=== PATIENT | male | born 1950 | race Caucasian/White ===

== ENCOUNTER 2020-07-12 14:16 | Inpatient (IN) | payer OTHER, SELFPAY ==
[~2020-07-12] VITALS: Ht 167.6 cm; Wt 107.0 kg
[2020-07-12] MEDS: ENOXAPARIN 40 MG/0.4 ML SYR SUBQ SCH
[2020-07-12 14:17] VITALS: BP 138/84
--- NOTE | 2020-07-12 14:27 | NUR ---
KIEL SWAB SENT TO LAB
--- NOTE | 2020-07-12 14:30 | NUR ---
70 YEAR OLD FEMALE BIBA FROM HOME FOR NEAR SYNCOPE EPISODE. PER EMS PT DID NOT LOC, AND WAS ASSISTED TO GROUND BY FAMILY. PT AOX4, BREATHING EVEN AND UNLABORED, SKIN WARM AND DRY. BED IN LOWEST POSITION, LOCKED, BED RAIL UPX1. PT PLACED ON MONITOR, VS STABLE. PMH - HTN, GOUT ALLERGIES - NKA
--- NOTE | 2020-07-12 14:41 | NUR ---
research tech at bedside.
[2020-07-12 14:43] LABS: BASOPHILS % (AUTO) 0.2 % (0.0-2.0); HEMATOCRIT 40.4 % (36-52); HEMOGLOBIN 13.4 g/dL (12.0-18.0); LYMPHOCYTES # (AUTO) 0.9 K/uL (2.0-11.5); LYMPHOCYTES % (AUTO) 13.2 % (20.5-51.1); MEAN CORPUSCULAR HEMOGLOBIN 31 pg (27-31); MEAN CORPUSCULAR HGB CONC 33 g/dL (33-37); MEAN CORPUSCULAR VOLUME 92.8 fL (80-94); MONOCYTES # (AUTO) 0.6 K/uL (0.8-1.0); MONOCYTES % (AUTO) 9.3 % (1.7-9.3); NEUTROPHILS # (AUTO) 5.3 K/uL (1.8-7.7); NEUTROPHILS % (AUTO) 77.3 % (42.2-75.2); PLATELET COUNT (AUTO) 171 K/uL (140-450); RED BLOOD CELL COUNT(AUTO) 4.36 MIL/uL (4.20-6.10); RED CELL DISTRIBUTION WIDTH 12.8 % (11.6-13.7); WHITE BLOOD COUNT (AUTO) 6.9 K/uL (4.8-10.8)
--- NOTE | 2020-07-12 14:48 | NUR ---
Dr. Fernandez is evaluating the patient at bedside.
--- NOTE | 2020-07-12 14:50 | NUR ---
PT 91% ON RA, RR 14 - PLACED ON 2L NC
[2020-07-12 14:55] LABS: PROTHROMBIN TIME 10.2 secs (10.8-13.4)
[2020-07-12 14:57] LABS: ALBUMIN 2.9 g/dL (3.4-5.0); ASPARTATE AMINOTRANSFERASE 54 U/L (15-37); CARBON DIOXIDE 24.6 mmol/L (21-32); CHLORIDE 108 mmol/L (98-107); CREATININE 1.9 mg/dL (0.6-1.3); GLUCOSE 148 mg/dL (74-106); POTASSIUM 3.6 mmol/L (3.5-5.1); SODIUM SERUM 143 mmol/L (136-145); TOTAL BILIRUBIN 0.6 mg/dL (0.0-1.0); UREA NITROGEN, BLOOD 35 mg/dL (7-18)
--- NOTE | 2020-07-12 15:16 | NUR ---
WITH PT STANDING UP, SPO2 86% THEN PT HAS SOB AND HAD TO SIT DOWN. DR ACOSTA MADE AWARE, PLACED ON 4L NC.
[2020-07-12] MEDS ORDERED: METO100T14 PO (15:21)
[2020-07-12] MEDS ORDERED: ALLO100T21 PO (15:21)
[2020-07-12] MEDS ORDERED: NACL 0.9% 1,000 ML IV ONE (16:40)
[2020-07-12] MEDS ORDERED: TERA5CAP8 PO (16:46)
[2020-07-12] MEDS ORDERED: AZIT250T3 PO (16:46)
[2020-07-12] MEDS ORDERED: LOSA100T1 PO (16:46)
[2020-07-12] MEDS ORDERED: ONDANSETRON 4 MG/2 ML VIAL IVP PRN (17:50)
[2020-07-12] MEDS ORDERED: ACETAMINOPHEN 325 MG TAB PO PRN (17:50)
[2020-07-12] MEDS ORDERED: KCL 20 MEQ/WATER INJ PREMIX 200 ML IV PRN (17:50)
[2020-07-12] MEDS ORDERED: MAG SULF 2000 MG/WATER PREMIX 50 ML IV PRN (17:50)
[2020-07-12] MEDS ORDERED: remdesivir COMMUNICATION ORDER 1 EA MISC MC PRN (18:00)
--- NOTE | 2020-07-12 19:22 | NUR ---
REPORT GIVEN TO ELIZABETH JIANG, TRANSFER OF CARE AT THIS TIME
--- NOTE | 2020-07-12 22:18 | NUR ---
PRE-TRANSFER NOTES: 1-UNABLE TO ADMINISTER LOVENOX D/T COMPUTER NOT ACCEPTING CO-SIGNATURE FROM EFFICIENCY ENGINEER. 2-PT REPORT CALLED IN TO DEIDRE STEVE, AT [id number] AT [id number]. PT TO BE TRANSFERRED TO ROOM 110-B. CONDITION STABLE. 3-CONSENT FOR CONVALESCENT PLASMA GIVEN BY PT.
[2020-07-12 23:03] VITALS: BP 111/63
--- NOTE | 2020-07-12 23:03 | NUR ---
RECEIVED PT FROM ER / MARK / NID - O2 SAT WNL , ON O2 AT 4LPM/NC , AAOX4 , IV SITE INTACT AND PATENT . AMBULATES TO BED BY STANDY ASSIST . DENIES ANY PAIN . ADMISSION ASSESSMENT DONE - MRSA SPECIMEN SENT . P;YAQUELIN OF CARE DISCUSSED VERBALIZE UNDERSTANDING . SAFETY MEASURES IN PLACE - CALL LIGHT WITHIN REACH . WILL CONT. TO MONITOR .
--- NOTE | 2020-07-13 01:00 | NUR ---
VOIDED FREELY AMBULATES TO RESTROOM . NID 02 SAT WNL .
--- NOTE | 2020-07-13 02:00 | NUR ---
SLEEPING , CHEST RISE AND FALL EQUALLY .
[2020-07-13 04:00] VITALS: BP 131/83
--- NOTE | 2020-07-13 04:00 | NUR ---
MADE ROUNDS , NO S/SX OF ACUTE DISTRESS NOTED . CALL LIGHT WITHIN REACH .
--- NOTE | 2020-07-13 05:37 | NUR ---
O2 SAT WNL . NO S/SX OF ACUTE DISTREES . CALL LIGHT WITHIN REACH .
--- NOTE | 2020-07-13 07:30 | NUR ---
ENDORSED =- PT - STABLE . I ENDORSE TO AM NURSE THE PT'S WILL CALL THIS AM FOR SOME INFO REGARDINVG PT'S HOME MEDS .
--- NOTE | 2020-07-13 07:31 | NUR ---
RECEIVED ENDORSEMENT FROM BLOCKER AND SEWER, AWAKE,ALERT, ORIENTEDX4, BREATHING SPONTANEOUSLY WITH O2 AT 4L/MINVIA NC ,NON LABORED NOTED. WITH IV CANNULA G18 AT RT AC ON SALINE LOCK NOTED. SAFETY MEASURES IN PLACE AND CONTINUE MONITOR
[2020-07-13 07:33] LABS: BASOPHILS % (AUTO) 0.2 % (0.0-2.0); HEMATOCRIT 40.7 % (36-52); HEMOGLOBIN 13.6 g/dL (12.0-18.0); LYMPHOCYTES # (AUTO) 1.3 K/uL (2.0-11.5); LYMPHOCYTES % (AUTO) 20.2 % (20.5-51.1); MEAN CORPUSCULAR HEMOGLOBIN 31 pg (27-31); MEAN CORPUSCULAR HGB CONC 33 g/dL (33-37); MEAN CORPUSCULAR VOLUME 93.4 fL (80-94); MONOCYTES # (AUTO) 0.8 K/uL (0.8-1.0); MONOCYTES % (AUTO) 12.8 % (1.7-9.3); NEUTROPHILS # (AUTO) 4.3 K/uL (1.8-7.7); NEUTROPHILS % (AUTO) 66.8 % (42.2-75.2); PLATELET COUNT (AUTO) 177 K/uL (140-450); RED BLOOD CELL COUNT(AUTO) 4.35 MIL/uL (4.20-6.10); WHITE BLOOD COUNT (AUTO) 6.4 K/uL (4.8-10.8)
[2020-07-13 07:56] LABS: ALBUMIN 2.9 g/dL (3.4-5.0); ASPARTATE AMINOTRANSFERASE 59 U/L (15-37); CARBON DIOXIDE 26.2 mmol/L (21-32); CHLORIDE 113 mmol/L (98-107); CREATININE 1.6 mg/dL (0.6-1.3); GLUCOSE 111 mg/dL (74-106); POTASSIUM 4.2 mmol/L (3.5-5.1); SODIUM SERUM 150 mmol/L (136-145); TOTAL BILIRUBIN 0.5 mg/dL (0.0-1.0); UREA NITROGEN, BLOOD 37 mg/dL (7-18)
[2020-07-13 08:00] VITALS: BP 125/67
[2020-07-13] MEDS: METOPROLOL SUCCINATE 50 MG TABER PO SCH (08:58)
[2020-07-13] MEDS: ENOXAPARIN 40 MG/0.4 ML SYR SUBQ SCH ×2 (08:59→20:29)
[2020-07-13] MEDS: LOSARTAN 50 MG TAB PO SCH (09:01)
[2020-07-13] MEDS: allopurinoL 100 MG TAB PO SCH (09:01)
[2020-07-13] MEDS: DOCUSATE SODIUM 100 MG GELCAP PO SCH (09:02)
[2020-07-13] MEDS: DEXAMETHASONE 4 MG/ML VIAL IVP SCH (09:02)
--- NOTE | 2020-07-13 09:13 | NUR ---
FULLY AWAKE AND ALERT, DUE MEDICATION GIVEN
[2020-07-13] MEDS ORDERED: remdesivir CLINICAL MONITORING 1 EA MISC MC PRN (11:10)
--- NOTE | 2020-07-13 11:12 | NUR ---
TO TOILET AMBULATORY, VOIDED FREELY
[2020-07-13 12:00] VITALS: BP 129/60
--- NOTE | 2020-07-13 12:09 | NUR ---
PATIENT HAS BEEN SCREENED AND CATEGORIZED MODERATE NUTRITION RISK. PATIENT WILL BE SEEN WITHIN 3-5 DAYS OF ADMISSION. 07/15/20 07/17/20 BRYAN CHEN MBA, RD
[2020-07-13] MEDS ORDERED: REMDESIVIR (EUA) 200 MG in NACL 0.9% 100 ML IV SCH (13:00)
--- NOTE | 2020-07-13 13:01 | NUR ---
FULLY AWAKE AND ALERT, DUE REMDISIVER IV GIVEN
--- NOTE | 2020-07-13 13:35 | NUR ---
[facility] CONTACTED AND SPOKE WITH MS CAMPOS TO FOLLOW UP RIKKI CONVALESCENT PLASMA, APPARENTLY AVAILABLE AND ASK HER TO THAW.
[2020-07-13] MEDS ORDERED: BENZONATATE 100 MG CAPLF PO PRN (14:10)
--- NOTE | 2020-07-13 15:31 | NUR ---
[facility] CALLED AND PLASMA IS READY
--- NOTE | 2020-07-13 15:45 | NUR ---
1 UNIT OF CONVALESCENT PLASMA 212 ML STARTED AND VERIFIED BY SECOND RN, HEALTH TEACHING PROVIDED, VERBALIZED UNDERSTANDING
[2020-07-13] MEDS: guaiFENesin 20 MG/ML UDC PO PRN (15:52)
--- NOTE | 2020-07-13 15:52 | NUR ---
COMPLAINED OF COUGH, SCANTY WHITISH SPUTUM CLAIMED, ROBITUSSIN 100MG PO Q4H ORDERED PRN GIVEN
[2020-07-13 16:00] VITALS: BP 132/67
--- NOTE | 2020-07-13 16:15 | NUR ---
STILL WITH ONGOING CONVALESCENT PLASMA, VITAL SIGNS STABLE
--- NOTE | 2020-07-13 17:25 | NUR ---
ABOVE 1 UNIT CONVALESCENT PLASMA COMPLETED, NO ADVERSE REACTION NOTED, VITAL SIGNS STABLE.
--- NOTE | 2020-07-13 18:02 | NUR ---
FULLY AWAKE, NOT IN DISTRESS NOTED
[2020-07-13] MEDS: ALBUTEROL SULFATE/IPRATROPIU 3 ML SOL IH SCH (19:00)
--- NOTE | 2020-07-13 19:25 | NUR ---
ENDORSED TO LIGHT EQUIPMENT OPERATOR IN STABLE CONDITION FOR CONTINUITY OF CARE
--- NOTE | 2020-07-13 19:26 | NUR ---
RECEIVED PT . AAOX4 , NID - O2 SAT WNL . ON O2 AT 4LPM/NC . DENIES ANY PAIN . IV SITE INTACT AND PATENT . SAFETY MEASURES IN PLACE . PLAN OF CARE DISCUSSED AND VERBALIZE UNDERSTANDINGF . 1 U CONVALESCENT PLASMA GIVEN BY AM SHIFT NURSE - NO LATE BT RXN NOTED AT THIS TIME . WILL CONT. TO MONITOR
[2020-07-13 20:00] VITALS: BP_SYST 134; BP_SYST 139; BP_DIAS 75; BP_DIAS 77
--- NOTE | 2020-07-14 | NUR ---
MADE ROUNDS , NO S/SX OF ACUTE DISTRESS NOTED . CALL LIGHT WITHIN REACH .
[2020-07-14] MEDS: ALBUTEROL SULFATE/IPRATROPIU 3 ML SOL IH SCH ×4 (01:00→18:27)
--- NOTE | 2020-07-14 04:00 | NUR ---
AWAKE , NO COMPLAIN MADE
[2020-07-14 07:27] LABS: BASOPHILS % (AUTO) 0.2 % (0.0-2.0); HEMATOCRIT 40.4 % (36-52); HEMOGLOBIN 13.4 g/dL (12.0-18.0); LYMPHOCYTES # (AUTO) 1.3 K/uL (2.0-11.5); LYMPHOCYTES % (AUTO) 22.2 % (20.5-51.1); MEAN CORPUSCULAR HEMOGLOBIN 31 pg (27-31); MEAN CORPUSCULAR HGB CONC 33 g/dL (33-37); MEAN CORPUSCULAR VOLUME 92.8 fL (80-94); MONOCYTES # (AUTO) 0.8 K/uL (0.8-1.0); MONOCYTES % (AUTO) 13.8 % (1.7-9.3); NEUTROPHILS # (AUTO) 3.7 K/uL (1.8-7.7); NEUTROPHILS % (AUTO) 63.8 % (42.2-75.2); PLATELET COUNT (AUTO) 201 K/uL (140-450); RED BLOOD CELL COUNT(AUTO) 4.35 MIL/uL (4.20-6.10); RED CELL DISTRIBUTION WIDTH 12.6 % (11.6-13.7); WHITE BLOOD COUNT (AUTO) 5.7 K/uL (4.8-10.8)
--- NOTE | 2020-07-14 07:40 | NUR ---
REC'D REPORT FROM AGRI BUSINESS AGENT NURSE, PT A/Ox4. ON 4LNC, RESTING. CALL LIGHT WITHIN REACH
--- NOTE | 2020-07-14 07:40 | NUR ---
ENDORSE - PT - STABLE .
[2020-07-14 07:54] LABS: ALBUMIN 2.8 g/dL (3.4-5.0); ANION GAP 14.7 (8-16); ASPARTATE AMINOTRANSFERASE 90 U/L (15-37); CARBON DIOXIDE 23.9 mmol/L (21-32); CHLORIDE 112 mmol/L (98-107); CREATININE 1.2 mg/dL (0.6-1.3); GLUCOSE 135 mg/dL (74-106); POTASSIUM 3.6 mmol/L (3.5-5.1); SODIUM SERUM 147 mmol/L (136-145); TOTAL BILIRUBIN 0.5 mg/dL (0.0-1.0); UREA NITROGEN, BLOOD 34 mg/dL (7-18)
[2020-07-14 08:00] VITALS: BP 141/82
[2020-07-14] MEDS: DOCUSATE SODIUM 100 MG GELCAP PO SCH (09:00)
[2020-07-14] MEDS: DEXAMETHASONE 4 MG/ML VIAL IVP SCH ×2 (09:00→09:32)
[2020-07-14] MEDS: ENOXAPARIN 40 MG/0.4 ML SYR SUBQ SCH ×2 (09:28→20:11)
[2020-07-14] MEDS: METOPROLOL SUCCINATE 50 MG TABER PO SCH (09:30)
[2020-07-14] MEDS: LOSARTAN 50 MG TAB PO SCH (09:31)
[2020-07-14] MEDS: allopurinoL 100 MG TAB PO SCH (09:31)
--- NOTE | 2020-07-14 09:49 | NUR ---
ADMINISTERED MEDICATION PER MD ORDER, IV SITE FLUSHED WITH NS, INTACT, PATENT, DRY, CLEAN. PT ON 5L NC. PT INSTRUCTED TO KEEP NC ON, HAD IT OFF, STATES HE FORGETS. REINFORCED TEACHING OF HOW IMPORTANT IT IS TO KEEP ON AND HOW TO APPLY IF IT COMES OFF. NC WAS SECURED AROUND PT'S HEAD AND NECK. PT VERBALLY UNDERSTOOD INSTRUCTIONS.
--- NOTE | 2020-07-14 12:41 | NUR ---
PT DOING WELL, RESTING IN BED. STABLE
[2020-07-14] MEDS: REMDESIVIR (EUA) 100 MG in NACL 0.9% 100 ML IV SCH (13:20)
[2020-07-14 16:00] VITALS: BP 116/71
--- NOTE | 2020-07-14 18:00 | NUR ---
SPOKE TO [facility] RE: PT'S CONVALESCENT PLASMA ORDER PENDING IN SYSTEM. PT HAD ONE TRANSFUSION OF CONVALSCENT PLASMA ON 07/13/2020 BUT DOES NOT SHOW IN SYSTEM D/T THE WAY THE ORDER WAS PLACED. PLEASE NOTE
--- NOTE | 2020-07-14 18:41 | NUR ---
PT RESTING, ON 4LNC, CALL LIGHT WITHIN REACH. STABLE.
--- NOTE | 2020-07-14 19:33 | NUR ---
ENDORSED PT TO CLIENT SERVICES ASSOCIATE NURSE, PT STABLE, HAVING DINNER. 4L NC.
--- NOTE | 2020-07-14 19:34 | NUR ---
RECEIVED REPORT FROM MAX HELMS. PT AOX4 ON 4L NC, NO S/S RESPIRATORY DISTRESS. NO C/O PAIN AT THIS TIME. IV SITE RAC 18G PATENT INTACT, S.L. SAFETY MEASURES IN PLACE. CALL LIGHT WITHIN REACH. WILL CONTINUE TO MONITOR
[2020-07-14 20:00] VITALS: BP 132/70
--- NOTE | 2020-07-14 20:15 | NUR ---
ADMINISTERED SCHEDULED MEDICATION, TOLERATED WELL. WILL CONTINUE TO MONITOR
--- NOTE | 2020-07-14 22:45 | NUR ---
PT AWAKE RESTING COMFORTABLY IN BED, DENIES SOB, DENIES PAIN. NO DISTRESS NOTED. WILL CONTINUE TO MONITOR
[2020-07-15] MEDS: guaiFENesin 20 MG/ML UDC PO PRN ×2 (01:45→09:53)
--- NOTE | 2020-07-15 01:50 | NUR ---
PRN ROBITUSSIN GIVEN FOR PT C/O COUGH, TOLERATED WELL. WILL CONTINUE TO MONITOR
[2020-07-15 04:00] VITALS: BP 136/68
--- NOTE | 2020-07-15 07:10 | NUR ---
PT ASLEEP IN BED. NC IN PLACE. NO DISTRESS NOTED. WILL ENDORSE TO DAY RN FOR CONTINUITY OF CARE. PT IS IN STABLE CONDITION
--- NOTE | 2020-07-15 07:50 | NUR ---
RECEIVED REPORT FROM SWITCH ENGINEER NURSE. PT AOX4 ON 4L NC, RESPIRATIONS EVEN AND UNLABORED. NO S/S RESPIRATORY DISTRESS. NO C/O PAIN AT THIS TIME. IV SITE LH 24 G SALINE LOCKED. PATENT AND INTACT. PLAN OF CARE WAS DISCUSSED. SAFETY MEASURES IN PLACE. CALL LIGHT WITHIN REACH. WILL CONTINUE TO MONITOR
[2020-07-15 08:00] VITALS: BP 145/58
[2020-07-15 08:21] LABS: BASOPHILS % (AUTO) 0.2 % (0.0-2.0); EOSINOPHILS % (AUTO) 0.1 % (0.0-4.0); HEMATOCRIT 39.9 % (36-52); HEMOGLOBIN 13.3 g/dL (12.0-18.0); LYMPHOCYTES # (AUTO) 1.7 K/uL (2.0-11.5); LYMPHOCYTES % (AUTO) 24.9 % (20.5-51.1); MEAN CORPUSCULAR HEMOGLOBIN 31 pg (27-31); MEAN CORPUSCULAR HGB CONC 33 g/dL (33-37); MEAN CORPUSCULAR VOLUME 92.5 fL (80-94); MONOCYTES # (AUTO) 0.8 K/uL (0.8-1.0); MONOCYTES % (AUTO) 11.4 % (1.7-9.3); NEUTROPHILS # (AUTO) 4.4 K/uL (1.8-7.7); NEUTROPHILS % (AUTO) 63.4 % (42.2-75.2); PLATELET COUNT (AUTO) 226 K/uL (140-450); RED BLOOD CELL COUNT(AUTO) 4.31 MIL/uL (4.20-6.10); RED CELL DISTRIBUTION WIDTH 12.8 % (11.6-13.7); WHITE BLOOD COUNT (AUTO) 6.9 K/uL (4.8-10.8)
[2020-07-15 08:59] LABS: ALBUMIN 2.8 g/dL (3.4-5.0); ANION GAP 14.1 (8-16); ASPARTATE AMINOTRANSFERASE 45 U/L (15-37); CARBON DIOXIDE 24.1 mmol/L (21-32); CHLORIDE 110 mmol/L (98-107); CREATININE 1.1 mg/dL (0.6-1.3); GLUCOSE 100 mg/dL (74-106); POTASSIUM 3.2 mmol/L (3.5-5.1); SODIUM SERUM 145 mmol/L (136-145); TOTAL BILIRUBIN 0.6 mg/dL (0.0-1.0); UREA NITROGEN, BLOOD 31 mg/dL (7-18)
[2020-07-15] MEDS: METOPROLOL SUCCINATE 50 MG TABER PO SCH (09:00)
[2020-07-15] MEDS: allopurinoL 100 MG TAB PO SCH (09:49)
[2020-07-15] MEDS: DOCUSATE SODIUM 100 MG GELCAP PO SCH (09:50)
[2020-07-15] MEDS: LOSARTAN 50 MG TAB PO SCH (09:50)
[2020-07-15] MEDS: ENOXAPARIN 40 MG/0.4 ML SYR SUBQ SCH ×2 (09:51→21:02)
--- NOTE | 2020-07-15 09:53 | NUR ---
PT COMPLAINING OF COUGHING. ADMINISTERED ROBITUSSIN PER ORDERED.
[2020-07-15] MEDS: DEXAMETHASONE 4 MG/ML VIAL IVP SCH (10:08)
--- NOTE | 2020-07-15 10:10 | NUR ---
ALL SCHEDULED MEDS GIVEN. PT IS STABLE. NO DISTRESS NOTED. WILL CONTINUE TO MONITOR.
[2020-07-15] MEDS: ALBUTEROL SULFATE/IPRATROPIU 3 ML SOL IH SCH ×2 (13:00→19:00)
[2020-07-15] MEDS: REMDESIVIR (EUA) 100 MG in NACL 0.9% 100 ML IV SCH (14:20)
--- NOTE | 2020-07-15 14:21 | NUR ---
PT WAS GIVEN IVPB MEDICATION NOW, WILL MONITOR PT.
[2020-07-15 16:00] VITALS: BP 145/82
--- NOTE | 2020-07-15 16:47 | NUR ---
REPORTED MD REGARDING PATIENTS LOW POTASSIUM LEVEL. JUST AWAITING FOR HIS REPLY
--- NOTE | 2020-07-15 19:35 | NUR ---
RECEIVED PATIENT FROM AM SHIFT NURSE FOR CONTINUITY OF CARE. AAOX4. RESPIRATIONS TACHYPNEIC AND LABORED UPON EXERTION. O2SAT 95%. SKIN WARM, DRY. IV SITE TO RIGHT FOREARM 24G PATENT/INTACT, INFUSING FLUIDS WELL. NO C/O PAIN. NO S/S ACUTE DISTRESS. ABDOMEN SOFT, NONTENDER, NONDISTENDED. BOWEL SOUNDS ACTIVE X4 QUADRANTS. PATIENT IS CONTINENT OF B/B. PLAN OF CARE DISCUSSED. ISOLATION PRECAUTIONS OBSERVED BY ALL STAFF. SAFETY PRECAUTIONS IN PLACE.
--- NOTE | 2020-07-15 19:35 | NUR ---
ENDORSED TO PROGRAMMING DIRECTOR NURSE FOR CONTINUITY OF CARE.
--- NOTE | 2020-07-15 21:30 | NUR ---
DUE MEDS GIVEN. PATIENT RESTING COMFORTABLY IN BED. NO S/S ACUTE DISTRESS. CALL LIGHT WITHIN REACH.
--- NOTE | 2020-07-15 23:00 | NUR ---
PATIENT RESTING COMFORTABLY IN BED. NO S/S ACUTE DISTRESS. CALL LIGHT WITHIN REACH.
[2020-07-16] MEDS: ALBUTEROL SULFATE/IPRATROPIU 3 ML SOL IH SCH ×3 (01:00→13:00)
--- NOTE | 2020-07-16 01:00 | NUR ---
MADE ROUNDS. PATIENT IS ASLEEP. NO S/S ACUTE DISTRESS. CALL LIGHT WITHIN REACH.
--- NOTE | 2020-07-16 03:00 | NUR ---
PATIENT IS SLEEPING WELL. NO S/S ACUTE DISTRESS. CALL LIGHT WITHIN REACHH.
[2020-07-16 04:00] VITALS: BP 127/77
--- NOTE | 2020-07-16 05:30 | NUR ---
NO S/S ACUTE DISTRESS. PATIENT IS ASLEEP. CALL LIGHT WITHIN REACH.
[2020-07-16] MEDS ORDERED: POTASSIUM CHLORIDE 10 MEQ TABER PO ONE (05:55)
--- NOTE | 2020-07-16 07:36 | NUR ---
RECEIVED REPORT FROM SPINNING FRAME CHANGER NURSE. PATIENT IN STABLE CONDITION.
[2020-07-16 08:00] VITALS: BP 124/62
[2020-07-16] MEDS: METOPROLOL SUCCINATE 50 MG TABER PO SCH (09:00)
[2020-07-16] MEDS: LOSARTAN 50 MG TAB PO SCH (09:22)
[2020-07-16] MEDS: allopurinoL 100 MG TAB PO SCH (09:22)
[2020-07-16] MEDS: DEXAMETHASONE 4 MG/ML VIAL IVP SCH (09:23)
[2020-07-16] MEDS: ENOXAPARIN 40 MG/0.4 ML SYR SUBQ SCH ×2 (09:23→21:08)
[2020-07-16] MEDS: DOCUSATE SODIUM 100 MG GELCAP PO SCH (09:23)
[2020-07-16 09:28] LABS: ALBUMIN 2.7 g/dL (3.4-5.0); ANION GAP 13.3 (8-16); ASPARTATE AMINOTRANSFERASE 60 U/L (15-37); CARBON DIOXIDE 26.3 mmol/L (21-32); CHLORIDE 108 mmol/L (98-107); CREATININE 1.1 mg/dL (0.6-1.3); GLUCOSE 99 mg/dL (74-106); POTASSIUM 3.6 mmol/L (3.5-5.1); SODIUM SERUM 144 mmol/L (136-145); TOTAL BILIRUBIN 0.8 mg/dL (0.0-1.0); UREA NITROGEN, BLOOD 25 mg/dL (7-18)
[2020-07-16 09:57] LABS: BASOPHILS % (AUTO) 0.2 % (0.0-2.0); EOSINOPHILS % (AUTO) 0.2 % (0.0-4.0); HEMATOCRIT 41.6 % (36-52); HEMOGLOBIN 13.8 g/dL (12.0-18.0); LYMPHOCYTES # (AUTO) 1.7 K/uL (2.0-11.5); LYMPHOCYTES % (AUTO) 32.6 % (20.5-51.1); MEAN CORPUSCULAR HEMOGLOBIN 31 pg (27-31); MEAN CORPUSCULAR HGB CONC 33 g/dL (33-37); MEAN CORPUSCULAR VOLUME 92.8 fL (80-94); MONOCYTES # (AUTO) 0.8 K/uL (0.8-1.0); MONOCYTES % (AUTO) 14.8 % (1.7-9.3); NEUTROPHILS # (AUTO) 2.8 K/uL (1.8-7.7); NEUTROPHILS % (AUTO) 52.2 % (42.2-75.2); PLATELET COUNT (AUTO) 235 K/uL (140-450); RED BLOOD CELL COUNT(AUTO) 4.49 MIL/uL (4.20-6.10); RED CELL DISTRIBUTION WIDTH 12.6 % (11.6-13.7); WHITE BLOOD COUNT (AUTO) 5.3 K/uL (4.8-10.8)
[2020-07-16] MEDS: REMDESIVIR (EUA) 100 MG in NACL 0.9% 100 ML IV SCH (13:00)
--- NOTE | 2020-07-16 15:02 | NUR ---
TOOK PATIENT OFF OXYGEN FOR 1 HOUR. ON ROOM AIR RESTING, O2 SAT :97%. WHEN WALKING AROUND THE ROOM 20 FT ON ROOM AIR. 02 SAT:94-96%. PATIENT DOES NOT DESAT AT THIS TIME ON ROOM AIR. WILL CONTINUE TO MONITOR.
[2020-07-16 16:00] VITALS: BP 132/76
--- NOTE | 2020-07-16 16:45 | NUR ---
TRICIA DIEHLNER: LATE ENTRY FAXED ORDER FOR HOME 02 TO [employer]. BEEN ON HOLD FOR OVER 30 MINS TRYING TO GET AHOLD OF A CM Addendum: 07/17/20 at 1022 by Inna Ferguson CM TRICIA AVILA: SPOKE TO PAULETTE AT [facility] THEY ARE CONTRACTED WITH PATIENTS INSURANCE. FAXED ORDER WILL FOLLOW UP.
--- NOTE | 2020-07-16 19:30 | NUR ---
RECEIVED PATIENT FROM AM SHIFT NURSE FOR CONTINUITY OF CARE. AAOX4. RESPIRATIONS EVEN, UNLABORED. NO S/S RESPIRATORY DISTRESS. O2SAT 90%. SKIN WARM, DRY. SALINE LOCK TO LEFT FOREARM 24G PATENT/INTACT. NO C/O PAIN. NO S/S ACUTE DISTRESS. ABDOMEN SOFT, NONTENDER, NONDISTENDED. BOWEL SOUNDS ACTIVE X4 QUADRANTS. PATIENT IS CONTINENT OF B/B. PLAN OF CARE DISCUSSED. ISOLATION PRECAUTIONS OBSERVED BY ALL STAFF.
[2020-07-16 20:00] VITALS: BP 129/81
--- NOTE | 2020-07-16 21:00 | NUR ---
DUE MEDS GIVEN. PATIENT RESTING COMFORTABLY IN BED. NO S/S ACUTE DISTRESS. CALL LIGHT WITHIN REACH. ISOLATION PRECAUTIONS OBSERVED BY ALL STAFF.
--- NOTE | 2020-07-16 23:00 | NUR ---
PATIENT RESTING COMFORTABLY IN BED. NO S/S ACUTE DISTRESS. CALL LIGHT WITHIN REACH. ISOLATION PRECAUTIONS OBSERVED BY ALL STAFF.
--- NOTE | 2020-07-17 01:00 | NUR ---
MADE ROUNDS. PATIENT IS ASLEEP. NO S/S ACUTE DISTRESS. CALL LIGHT WITHIN REACH. SAFETY PRECAUTIONS IN PLACE. ISOLATION PRECAUTIONS OBSERVED BY ALL STAFF.
--- NOTE | 2020-07-17 03:30 | NUR ---
PATIENT IS ASLEEP. NO S/S ACUTE DISTRESS. CALL LIGHT WITHIN REACH. SAFETY PRECAUTIONS IN PLACE. ISOLATION PRECAUTIONS OBSERVED BY ALL STAFF.
[2020-07-17 04:00] VITALS: BP 152/64
--- NOTE | 2020-07-17 05:00 | NUR ---
PATIENT RESTING COMFORTABLY IN BED. NO S/S ACUTE DISTRESS. CALL LIGHT WITHIN REACH. SAFETY PRECAUTIONS IN PLACE. ISOLATION PRECAUTIONS OBSERVED BY ALL STAFF.
[2020-07-17] MEDS: ALBUTEROL SULFATE/IPRATROPIU 3 ML SOL IH SCH (07:00)
--- NOTE | 2020-07-17 07:34 | NUR ---
ENDORSED PATIENT TO AM SHIFT NURSE FOR CONTINUITY OF CARE.
--- NOTE | 2020-07-17 07:43 | NUR ---
RECEIVED PATIENT IN BED RESTING COMFORTABLY. PATIENT PRESENTS CALM AND COOPERATIVE, ABLE TO EXPRESS NEEDS. NO C/O PAIN OR DISCOMFORT. RESPIRATIONS ARE NON- LABORED. SKIN IS CLEAN, WARM AND DRY TO TOUCH. IV ACCESS IS PATENT, DRY, SECURE AND INTACT. NO S/SX OF REDNESS OR SWELLING AT SITE. HOB IS ELEVATED AND LOCKED IN THE LOWEST POSITION, CALL LIGHT IN REACH. NURSE WILL CONTINUE CARE AND MONITOR FOR CHANGES IN STATUS.
[2020-07-17 08:45] LABS: BASOPHILS % (AUTO) 0.2 % (0.0-2.0); EOSINOPHILS % (AUTO) 0.3 % (0.0-4.0); HEMATOCRIT 39.6 % (36-52); HEMOGLOBIN 13.5 g/dL (12.0-18.0); LYMPHOCYTES # (AUTO) 2.2 K/uL (2.0-11.5); LYMPHOCYTES % (AUTO) 35.7 % (20.5-51.1); MEAN CORPUSCULAR HEMOGLOBIN 31 pg (27-31); MEAN CORPUSCULAR HGB CONC 34 g/dL (33-37); MEAN CORPUSCULAR VOLUME 91.2 fL (80-94); MONOCYTES # (AUTO) 0.8 K/uL (0.8-1.0); MONOCYTES % (AUTO) 12.9 % (1.7-9.3); NEUTROPHILS # (AUTO) 3.1 K/uL (1.8-7.7); NEUTROPHILS % (AUTO) 50.9 % (42.2-75.2); PLATELET COUNT (AUTO) 263 K/uL (140-450); RED BLOOD CELL COUNT(AUTO) 4.34 MIL/uL (4.20-6.10); RED CELL DISTRIBUTION WIDTH 12.6 % (11.6-13.7); WHITE BLOOD COUNT (AUTO) 6.1 K/uL (4.8-10.8)
[2020-07-17] MEDS: ENOXAPARIN 40 MG/0.4 ML SYR SUBQ SCH (09:00)
[2020-07-17] MEDS: LOSARTAN 50 MG TAB PO SCH (09:00)
[2020-07-17] MEDS: DOCUSATE SODIUM 100 MG GELCAP PO SCH (09:00)
[2020-07-17] MEDS: DEXAMETHASONE 4 MG/ML VIAL IVP SCH (09:00)
[2020-07-17] MEDS: METOPROLOL SUCCINATE 50 MG TABER PO SCH (09:00)
[2020-07-17] MEDS: allopurinoL 100 MG TAB PO SCH (09:00)
--- NOTE | 2020-07-17 09:11 | NUR ---
07/17/20 RD INITIAL ASSESSMENT COMPLETED PLEASE REFER TO NUTRITION ASSESSMENT UNDER CARE ACTIVITY FOR ESTIMATED NUTRITIONAL NEEDS. RD RECOMMENDATIONS: 1. RECOMMEND CONTINUE CARDIAC DIET; APPROPRIATE/SUFFICIENT TO MEET NEEDS. 2. F/U 7 DAYS; LOW NUTRITIONAL RISK BRYAN CHEN MBA, RD
[2020-07-17 09:13] LABS: ALBUMIN 2.9 g/dL (3.4-5.0); ANION GAP 11.9 (8-16); ASPARTATE AMINOTRANSFERASE 71 U/L (15-37); CARBON DIOXIDE 26.4 mmol/L (21-32); CHLORIDE 107 mmol/L (98-107); GLUCOSE 99 mg/dL (74-106); POTASSIUM 3.3 mmol/L (3.5-5.1); SODIUM SERUM 142 mmol/L (136-145); TOTAL BILIRUBIN 0.7 mg/dL (0.0-1.0); UREA NITROGEN, BLOOD 22 mg/dL (7-18)
[2020-07-17 12:07] LABS: HEPATITIS A ANTIBODY IGM Negative (Negative); HEPATITIS B CORE AB TOTAL Negative (Negative); HEPATITIS B SURFACE ANTIGEN Negative (Negative)
[2020-07-17] MEDS ORDERED: POTASSIUM CHLORIDE 10 MEQ TABER PO SCH (12:15)
--- NOTE | 2020-07-17 12:33 | NUR ---
NOTIFIED , REGARDING K+= 3.3, ADMINISTERED MEDICATION ORDERED.
[2020-07-17] MEDS: REMDESIVIR (EUA) 100 MG in NACL 0.9% 100 ML IV SCH (13:00)
--- NOTE | 2020-07-17 13:10 | NUR ---
PATIENT RESTING COMFORTABLY, NO C/O PAIN OR DISCOMFORT. RESPIRATIONS ARE NON-LABORED. SKIN IS CLEAN WARM AND DRY TO TOUCH. IV ACCESS IS PATENT, DRY AND INTACT. BED IS LOCKED IN LOWEST POSITION, CALL LIGHT IN REACH. NURSE WILL CONTINUE CARE AND MONITOR FOR CHANGES IN STATUS.
--- NOTE | 2020-07-17 18:55 | NUR ---
PATIENT DISCHARGED FROM CARE TO HOME WITH FAMILY.PATIENT GIVEN DISCHARGE INSTRUCTIONS AND FOLLOW INFORMATION. PRESCRIPTION GIVEN AND COPY PLACED IN CHART. PATIENT VERBALIZES UNDERSTANDING. RESPIRATIONS ARE NON-LABORED. SKIN IS CLEAN, WARM AND DRY TO TOUCH. IV ACCESS DISCONTINUED AND SECURED. PATIENT ESCORTED TO FAMILY IN AWAITING VEHICLE AND HAS ALL PERSONAL BELONGINGS
[2020-07-17 19:45] LABS: HEPATITIS B SURFACE ANTIBODY NON REACTIVE (NONREACTIVE)
== END 2020-07-17 19:06 | disposition home or self-care (01) | DRG 177 ==
LOC: MED 14:16 → MMU 17:59 → MTU 21:40
PROVIDERS: ADMIT Hospitalist; ATTEND Hospitalist
PROC: XW033E5 Introduction of Remdesivir Anti-infective into Peripheral Vein, Percutaneous Approach, New Technology Group 5 (ICD-10-PCS; principal; 2020-07-13)
PROC: XW13325 Transfusion of Convalescent Plasma (Nonautologous) into Peripheral Vein, Percutaneous Approach, New Technology Group 5 (ICD-10-PCS; 2020-07-13)
DX: U07.1 COVID-19 (principal); J96.01 Acute respiratory failure with hypoxia; J12.82 Pneumonia due to coronavirus disease 2019; I45.2 Bifascicular block; D68.69 Other thrombophilia; I10 Essential (primary) hypertension; Z87.891 Personal history of nicotine dependence; Z79.899 Other long term (current) drug therapy; Z83.3 Family history of diabetes mellitus; Z82.49 Family history of ischemic heart disease and other diseases of the circulatory system; Z11.52 Encounter for screening for COVID-19
CPT/HCPCS: 36415; 36430; 71045; 80053; 83036; 83880; 84484; 85025; 85379; 85610; 85730; 86702; 86704; 86706; 86708; 86709; 86803; 86900; 86901; 87040; 87081; 87340; 93005; 96360; 99285; J1100; J1650; J7030; P9017